=== PATIENT | female | born 1995 | race Caucasian/White ===

== ENCOUNTER 2016-07-02 21:23 | Emergency (ER) | payer OTHER ==
[~2016-07-02] VITALS: Ht 165.1 cm; Wt 80.9 kg
[2016-07-02 21:26] VITALS: BP 124/74
== END 2016-07-02 22:32 | disposition home or self-care (01) ==
LOC: ED 22:17
DX: S83.411A Sprain of medial collateral ligament of right knee, initial encounter (principal); I10 Essential (primary) hypertension; Z88.2 Allergy status to sulfonamides; X50.1XXA Overexertion from prolonged static or awkward postures, initial encounter; Y93.89 Activity, other specified; Y92.009 Unspecified place in unspecified non-institutional (private) residence as the place of occurrence of the external cause; Y99.9 Unspecified external cause status
CPT/HCPCS: 29505; 99284